=== PATIENT | male | born 1995 | race Caucasian/White ===

== ENCOUNTER 2025-02-05 11:23 | Emergency (ER) | payer MEDICAID, SELFPAY ==
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
[2025-02-05 11:34] VITALS: BP 126/91; BP 138/92; PULSE 104; PULSE 105; RESP 18; TEMP 36.9; O2SAT 99; BMI 24.4
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
--- NOTE | 2025-02-05 15:03 | PC.NURSE ---
Attempted report to [facility], no response.
[2025-02-05 15:13] VITALS: BP 126/91; PULSE 105; RESP 18; TEMP 36.9; O2SAT 99
== END 2025-02-05 15:14 | disposition home or self-care (01) ==
PROVIDERS: Emergency Provider Emergency Medicine
DX: S00.33XA Contusion of nose, initial encounter (principal); Y04.2XXA Assault by strike against or bumped into by another person, initial encounter; Y93.9 Activity, unspecified; Y92.9 Unspecified place or not applicable; Y99.8 Other external cause status; R51.9 Headache, unspecified
CPT/HCPCS: 70486; 99284

== ENCOUNTER → 2025-02-05 12:31 | Outpatient (BNV) | payer MEDICAID, SELFPAY | PROVIDERS: Emergency Provider Emergency Medicine; Visit Provider Radiology Diagnostic Radiology | DX: G50.1 Atypical facial pain (principal); Y04.2XXA Assault by strike against or bumped into by another person, initial encounter | CPT/HCPCS: 70486 ==